=== PATIENT | female | born 1995 | race Caucasian/White ===

== ENCOUNTER → 2018-08-19 09:00 | Outpatient (CLI) | payer OTHER, SELFPAY ==
[2018-08-19 12:20] LABS: Absolute Neutrophil Count 2.8 X10^3/uL (2.0-7.7); Basophil# 0.07 X10^3/uL; Basophil% 1.3 % (0-1); Eosinophils% 3.8 % (0-5); Hematocrit 44.7 % (37-47); Lymphocyte % 33.9 % (19-41); Mean Corp Hgb Conc 31.3 g/gl (32-36); Mean Corpuscular Hgb 28.3 pg (27.0-32.0); Mean Corpuscular Volume 90.3 fL (81-99); Mean Platelet Vol. 12.7 fl (6.2-12.0); Monocyte# 0.46 X10^3/uL; Monocyte% 8.7 % (0-10); Neutrophil # 2.77 X10^3/uL (2.7-7.7); Neutrophil % 52.1 % (47-70); Platelet Count 307 K/mm3 (150-450); RBC Distribution Width SD 42.3 fl (35.1-43.9); Red Blood Count 4.95 M/mm3 (4.2-5.4); White Blood Count 5.3 K/mm3 (4.4-11.0)
[2018-08-19 12:29] LABS: POSITIVE COUNT NO; POSITIVE DIFFERENTIAL NO; POSITIVE MORPHOLOGY NO
[2018-08-19 12:37] LABS: ALB/GLOB Ratio 1.1 RATIO (0.9-2.4); AST(SGOT) 14 U/L (15-37); Alanine Aminotransfer ALT/SGPT 17 U/L (13-56); Albumin, Serum 4.2 g/dL (3.2-5.0); Alkaline Phosphatase 63 U/L (45-117); Anion Gap 7 (5-15); BUN 12 mg/dL (7-18); Calcium,Total 9.1 mg/dL (8.5-10.1); Chloride 106 mmol/L (98-107); Creatinine, Serum 0.92 mg/dL (0.55-1.02); EST Glomerular Filtration Rate 81 mL/min (>60); Est Glom Filt Rate - Afr Amer 98 mL/min (>60); Globulin 3.7 g/dL (2.2-4.2); Glucose 86 mg/dL (74-106); Protein, Total 7.9 g/dL (6.4-8.2); Sodium Level 139 mmol/L (136-145)
== END ==
PROVIDERS: Family Provider Family Medicine; PCP Family Medicine; Visit Provider Family Medicine
DX: R53.83 Other fatigue (principal); R11.0 Nausea
CPT/HCPCS: 36415; 80053; 85025

== ENCOUNTER → 2020-07-17 15:04 | Outpatient (CLI) | payer OTHER, SELFPAY ==
[2020-07-17 17:24] LABS: Absolute Neutrophil Count 5.1 X10^3/uL (2.0-7.7); Basophil# 0.06 X10^3/uL; Basophil% 0.8 % (0-1); Eosinophil# 0.11 X10^3/uL; Eosinophils% 1.5 % (0-5); Hematocrit 43.4 % (37-47); Hemoglobin 14.1 g/dL (12.0-15.0); Lymphocyte % 18.2 % (19-41); Mean Corp Hgb Conc 32.5 g/dL (32-36); Mean Corpuscular Volume 86.3 fL (81-99); Mean Platelet Vol. 12.3 fl (6.2-12.0); NRBC Flagged by Analyzer 0 % (0-5); Neutrophil # 5.14 X10^3/uL (2.7-7.7); Neutrophil % 72.2 % (47-70); Platelet Count 304 K/mm3 (150-450); RBC Distribution Width CV 12.1 % (11.6-14.6); RBC Distribution Width SD 38.5 fl (35.1-43.9); Red Blood Count 5.03 M/mm3 (4.2-5.4); White Blood Count 7.1 K/mm3 (4.4-11.0)
[2020-07-17 17:37] LABS: Vitamin D,25 Hydroxy 11.3 ng/mL
[2020-07-17 17:53] LABS: AST(SGOT) 17 U/L (15-37); Alanine Aminotransfer ALT/SGPT 22 U/L (13-56); Alkaline Phosphatase 57 U/L (45-117); Anion Gap 8 (5-15); BUN 15 mg/dL (7-18); BUN/Creat Ratio 14.2 RATIO (10-20); Calcium,Total 9.2 mg/dL (8.5-10.1); Chloride 102 mmol/L (98-107); Creatinine, Serum 1.06 mg/dL (0.55-1.02); EST Glomerular Filtration Rate 68 mL/min (>60); Est Glom Filt Rate - Afr Amer 82 mL/min (>60); Globulin 3.9 g/dL (2.2-4.2); Glucose 93 mg/dL (74-106); Potassium 3.7 mmol/L (3.5-5.1); Protein, Total 7.9 g/dL (6.4-8.2); Sodium Level 135 mmol/L (136-145); Thyroid Stim Hormone (TSH) 1.29 uIU/mL (0.358-3.74)
== END ==
PROVIDERS: PCP Family Medicine; Visit Provider Family Medicine
DX: E55.9 Vitamin D deficiency, unspecified (principal); R53.83 Other fatigue
CPT/HCPCS: 36415; 80053; 82306; 84443; 85025

== ENCOUNTER → 2023-03-31 | Outpatient (CLI) | payer OTHER, SELFPAY ==
[2023-03-31 15:27] LABS: Absolute Lymphocyte Count 2.03 X10^3/uL (0.83-4.51); Absolute Neutrophil Count 2.8 X10^3/uL (2.0-7.7); Basophil# 0.06 X10^3/uL; Basophil% 1.1 % (0-1); Eosinophils% 5.3 % (0-5); Hematocrit 44.6 % (37-47); Hemoglobin 14.2 g/dL (12.0-15.0); Lymphocyte # 2.03 X10^3/ul (0.83-4.51); Lymphocyte % 36.1 % (19-41); Mean Corp Hgb Conc 31.8 g/dL (32-36); Mean Corpuscular Hgb 28.9 pg (27.0-32.0); Mean Corpuscular Volume 90.7 fL (81-99); Mean Platelet Vol. 12.8 fl (6.2-12.0); Monocyte# 0.45 X10^3/uL; NRBC Flagged by Analyzer 0 % (0-5); Neutrophil # 2.77 X10^3/uL (2.7-7.7); Neutrophil % 49.3 % (47-70); Platelet Count 315 K/mm3 (150-450); RBC Distribution Width CV 12.5 % (11.6-14.6); RBC Distribution Width SD 40.8 fl (35.1-43.9); Red Blood Count 4.92 M/mm3 (4.2-5.4); White Blood Count 5.6 K/mm3 (4.4-11.0)
[2023-03-31 15:48] LABS: AST(SGOT) 17 U/L (15-37); Alanine Aminotransfer ALT/SGPT 24 U/L (13-56); Albumin, Serum 4.2 g/dL (3.2-5.0); Alkaline Phosphatase 61 U/L (45-117); Anion Gap 4 (5-15); BUN 13 mg/dL (7-18); BUN/Creat Ratio 14.7 RATIO (10-20); Calcium,Total 9.5 mg/dL (8.5-10.1); Chloride 107 mmol/L (98-107); Cholesterol 170 mg/dL (200); Creatinine, Serum 0.88 mg/dL (0.55-1.02); EST Glomerular Filtration Rate 82 mL/min (>60); Est Glom Filt Rate - Afr Amer 99 mL/min (>60); Globulin 4.2 g/dL (2.2-4.2); Glucose 78 mg/dL (74-106); High Density Lipoprotein 67 mg/dL; Potassium 3.9 mmol/L (3.5-5.1); Protein, Total 8.4 g/dL (6.4-8.2); Sodium Level 139 mmol/L (136-145); Triglycerides 74 mg/dL; Very Low Density Lipoprotein 15 mg/dL (5-40)
== END | disposition home or self-care (01) ==
LOC: BFHLAB 13:10
PROVIDERS: PCP Family Medicine; Referring Provider Family Medicine; Visit Provider Family Medicine
DX: Z00.00 Encounter for general adult medical examination without abnormal findings (principal)
CPT/HCPCS: 36415; 80053; 80061; 85025

== ENCOUNTER → 2024-04-05 | Outpatient (CLI) | payer OTHER, SELFPAY ==
[2024-04-05 17:53] LABS: Absolute Lymphocyte Count 1.81 X10^3/uL (0.83-4.51); Basophil# 0.09 X10^3/uL; Basophil% 1.4 % (0-1); Eosinophil# 0.25 X10^3/uL; Eosinophils% 3.8 % (0-5); Hematocrit 39.9 % (37-47); Hemoglobin 12.8 g/dL (12.0-15.0); Lymphocyte # 1.81 X10^3/ul (0.83-4.51); Lymphocyte % 27.5 % (19-41); Mean Corp Hgb Conc 32.1 g/dL (32-36); Mean Corpuscular Hgb 28.7 pg (27.0-32.0); Mean Corpuscular Volume 89.5 fL (81-99); Mean Platelet Vol. 12.3 fl (6.2-12.0); Monocyte# 0.41 X10^3/uL; Monocyte% 6.2 % (0-10); NRBC Flagged by Analyzer 0 % (0-5); Neutrophil # 3.99 X10^3/uL (2.7-7.7); Neutrophil % 60.6 % (47-70); Platelet Count 294 K/mm3 (150-450); RBC Distribution Width CV 12.7 % (11.6-14.6); RBC Distribution Width SD 41.6 fl (35.1-43.9); Red Blood Count 4.46 M/mm3 (4.2-5.4); White Blood Count 6.6 K/mm3 (4.4-11.0)
[2024-04-05 18:24] LABS: ALB/GLOB Ratio 1.1 RATIO (0.9-2.4); AST(SGOT) 13 U/L (15-37); Alanine Aminotransfer ALT/SGPT 12 U/L (13-56); Albumin, Serum 3.9 g/dL (3.2-5.0); Alkaline Phosphatase 49 U/L (45-117); Anion Gap 5 (5-15); BUN 9 mg/dL (7-18); BUN/Creat Ratio 10.5 RATIO (10-20); Calcium,Total 9.4 mg/dL (8.5-10.1); Chloride 109 mmol/L (98-107); Cholesterol 154 mg/dL (200); Creatinine, Serum 0.86 mg/dL (0.55-1.02); EST Glomerular Filtration Rate 84 mL/min (>60); Est Glom Filt Rate - Afr Amer 101 mL/min (>60); Globulin 3.5 g/dL (2.2-4.2); Glucose 80 mg/dL (74-106); High Density Lipoprotein 55 mg/dL; Potassium 4.1 mmol/L (3.5-5.1); Protein, Total 7.4 g/dL (6.4-8.2); Sodium Level 137 mmol/L (136-145); Triglycerides 83 mg/dL; Very Low Density Lipoprotein 17 mg/dL (5-40)
[2024-04-07 12:09] LABS: Anti-Centromere B Ab <0.2 AI (0.0-0.9); Anti-Chromatin 0.2 AI (0.0-0.9); Anti-Jo <0.2 AI (0.0-0.9); Anti-Scleroderma-70 AB <0.2 AI (0.0-0.9); Anti-dsDNA Ab <1 IU/mL (0-9); RNP Ab 0.2 AI (0.0-0.9); SJOGREN'S Anti-SS-A test < 0.2 AI (0.0-0.9); SJOGREN'S Anti-SS-B test < 0.2 AI (0.0-0.9); Smith Ab <0.2 AI (0.0-0.9)
== END | disposition home or self-care (01) ==
LOC: BFHLAB 16:03
PROVIDERS: PCP Nurse Practitioner Family; Referring Provider Nurse Practitioner Family; Visit Provider Nurse Practitioner Family
DX: Z00.01 Encounter for general adult medical examination with abnormal findings (principal)
CPT/HCPCS: 36415; 80053; 80061; 85025; 86225; 86235